=== PATIENT | female | born 1970 | race American Indian/Alaskan Native ===

== ENCOUNTER 2017-08-28 12:45 | Emergency (ER) | payer BC ==
[2017-08-28 14:44] LABS: BUN/Creatinine Ratio 8; Blood Urea Nitrogen 5 mg/dL (7-17); Calcium 9.2 mg/dL (8.4-10.2); Hemolysis Index 2
[2017-08-28 14:48] LABS: Basophils % (Auto) 0.4 % (0.0-1.8); Eosinophils # (Auto) 0.2 K/mm3 (0.0-0.4); Eosinophils % (Auto) 3.7 % (0.0-4.3); Hematocrit 38.2 % (30.3-42.9); Lymphocytes # (Auto) 1.7 K/mm3 (1.2-5.4); Lymphocytes % (Auto) 33.4 % (13.4-35.0); Mean Corpuscular HGB Conc 32 % (30-34); Mean Corpuscular Volume 75 fl (79-97); Monocytes # (Auto) 0.5 K/mm3 (0.0-0.8); Monocytes % (Auto) 9.1 % (0.0-7.3); Platelet Count 253 K/mm3 (140-440); Red Blood Count 5.11 M/mm3 (3.65-5.03); Red Cell Distribution Width 17.5 % (13.2-15.2)
[2017-08-28 14:51] LABS: Mean Corpuscular Hemoglobin 24 pg (28-32)
--- NOTE | 2017-08-28 15:39 | XRay Report ---
CHEST 2 VIEWS INDICATION: Chest pain, shortness of breath. COMPARISON: None similar at this institution. FINDINGS: Frontal and lateral chest radiographs suggest top normal heart size. Normal mediastinal and hilar contours. Clear lungs. Right hemidiaphragm approximately 1.5 cm higher than the left. Unremarkable bones. CONCLUSION: No acute disease. Thank you for the opportunity to participate in this patient's care.
--- NOTE | 2017-08-28 18:43 | Emergency Department Report ---
ED Chest Pain HPI - General Chief Complaint: Chest Pain Stated Complaint: CP Time Seen by Provider: 08/28/17 18:43 Source: patient Mode of arrival: Stretcher Limitations: No Limitations - History of Present Illness Initial Comments: Patient essentially ran out of high blood pressure medication for the past 1 week. Today she started having chest pain. MD Complaint: chest pain -: Sudden Onset: during rest Pain Location: substernal Pain Radiation: none Severity: moderate Severity scale (0 -10): 6 Quality: sharp Consistency: constant Improves With: nitroglycerin Worsens With: nothing re: denies: nausea, vomting Other Symptoms: cough Treatments Prior to Arrival: aspirin, nitroglycerin Aspirin use within the Past 7 Days: (1) Yes - Related Data On Oral Contraceptives: No Previous Rx's Medication Instructions Recorded Last Taken Type Amoxicillin/Potassium Clav 1 each PO BID #20 tablet 08/28/17 Unknown Rx [Augmentin 875-125 Tablet] Aspirin [Aspir-Low] 81 mg PO DAILY #30 tablet. 08/28/17 Unknown Rx Benzonatate [Tessalon Perles] 100 mg PO Q8HR PRN #20 capsule 08/28/17 Unknown Rx Nitroglycerin [Nitrostat] 0.4 mg SL Q5M PRN #30 tab 08/28/17 Unknown Rx Triamter/Hctz 37.5-25 mg 1 tab PO QDAY #60 tablet 08/28/17 Unknown Rx [Maxzide-25] Allergies Allergy/AdvReac Type Severity Reaction Status Date / Time vancomycin AdvReac Rash Verified 08/28/17 13:54 Heart Score - HEART Score History: Slightly suspicious EKG: Normal Age: 45-65 Risk factors: 1-2 risk factors Troponin: 1-3x normal limit HEART Score: 3 - Critical Actions Critical Actions: 0-3 pts:0.9-1.7%risk of adverse cardiac event.Candidate for discharge ED Review of Systems ROS: Stated complaint: CP Other details as noted in HPI Comment: All other systems reviewed and negative Constitutional: denies: chills, fever Eyes: denies: eye pain, vision change Respiratory: denies: cough, shortness of breath Cardiovascular: chest pain. denies: palpitations, dyspnea on exertion, edema, syncope Endocrine: no symptoms reported Gastrointestinal: denies: abdominal pain, nausea, vomiting, diarrhea Genitourinary: denies: urgency, dysuria, frequency Musculoskeletal: denies: back pain, joint swelling Skin: denies: rash, change in color Neurological: denies: headache, weakness, numbness Psychiatric: denies: anxiety, depression Hematological/Lymphatic: denies: easy bleeding, easy bruising ED Past Medical Hx - Past Medical History Previous Medical History?: Yes Hx Hypertension: Yes - Surgical History Past Surgical History?: Yes Additional Surgical History: uterine ablation - Social History Smoking Status: Never Smoker Substance Use Type: None - Medications Home Medications: Home Medications Medication Instructions Recorded Confirmed Last Taken Type Amoxicillin/Potassium Clav 1 each PO BID #20 tablet 08/28/17 Unknown Rx [Augmentin 875-125 Tablet] Aspirin [Aspir-Low] 81 mg PO DAILY #30 tablet.dr 08/28/17 Unknown Rx Benzonatate [Tessalon Perles] 100 mg PO Q8HR PRN #20 capsule 08/28/17 Unknown Rx Nitroglycerin [Nitrostat] 0.4 mg SL Q5M PRN #30 tab 08/28/17 Unknown Rx Triamter/Hctz 37.5-25 mg 1 tab PO QDAY #60 tablet 08/28/17 Unknown Rx [Maxzide-25] ED Physical Exam - General Limitations: No Limitations General appearance: alert, in no apparent distress, obese - Head Head exam: Present: atraumatic, normocephalic - Eye Eye exam: Present: normal appearance, PERRL, EOMI - ENT ENT exam: Present: normal exam, normal orophraynx, mucous membranes moist - Neck Neck exam: Present: normal inspection, full ROM. Absent: tenderness - Respiratory Respiratory exam: Present: normal lung sounds bilaterally. Absent: respiratory distress, wheezes, rales, rhonchi - Cardiovascular Cardiovascular Exam: Present: regular rate, normal rhythm, normal heart sounds - GI/Abdominal GI/Abdominal exam: Present: soft. Absent: distended, tenderness, guarding, rebound, normal bowel sounds - Extremities Exam Extremities exam: Present: normal inspection, full ROM, normal capillary refill. Absent: tenderness - Back Exam Back exam: Present: normal inspection, full ROM. Absent: tenderness, CVA tenderness (R), CVA tenderness (L) - Neurological Exam Neurological exam: Present: alert, oriented X3, CN II-XII intact - Psychiatric Psychiatric exam: Present: normal affect, normal mood - Skin Skin exam: Present: warm, dry, intact, normal color ED Course Vital Signs 08/28/17 08/28/17 08/28/17 13:48 19:28 19:30 Temperature 98 F 98.5 F Pulse Rate 80 73 73 Respiratory 18 13 Rate Blood Pressure 169/79 169/100 Blood Pressure 169/100 [Right] O2 Sat by Pulse 98 99 Oximetry 08/28/17 08/28/17 08/28/17 21:24 21:25 21:37 Temperature Pulse Rate 78 Respiratory 13 Rate Blood Pressure 167/97 156/85 Blood Pressure 153/87 [Right] O2 Sat by Pulse 96 Oximetry 08/28/17 08/28/17 22:25 22:46 Temperature Pulse Rate 76 Respiratory 13 Rate Blood Pressure Blood Pressure 151/90 154/73 [Right] O2 Sat by Pulse 97 Oximetry SUNITHA score - Sunitha Score Age > 65: (0) No Aspirin use within the Past 7 Days: (0) No 3 or more CAD Risk Factors: (0) No 2 or more Angina events in past 24 hrs: (0) No Known CAD with more than 50% Stenosis: (0) No Elevated Cardiac Markers: (0) No ST Deviation Greater than 0.5mm: (0) No SUNITHA Score: 0 ED Medical Decision Making - Lab Data Result diagrams: 08/28/17 14:03 08/28/17 14:03 - EKG Data -: EKG Interpreted by Me EKG shows normal: sinus rhythm Rate: normal (65) - EKG Data When compared to previous EKG there are: previous EKG unavailable Interpretation: normal EKG - Radiology Data Radiology results: report reviewed, image reviewed - Medical Decision Making Hypertension. Atypical Chest Pain. Critical care attestation.: If time is entered above; I have spent that time in minutes in the direct care of this critically ill patient, excluding procedure time. ED Disposition Clinical Impression: Bronchitis, Atypical chest pain Hypertension Qualifiers: Hypertension type: unspecified Qualified Code(s): I10 - Essential (primary) hypertension Disposition: - TO HOME OR SELFCARE Is pt being admited?: No Does the pt Need Aspirin: Yes Condition: Stable Instructions: Chest Pain (ED), Chronic Bronchitis (ED), Hypertension (ED) Additional Instructions: Please take your medication as prescribed. Follow-up with her primary doctor tomorrow morning. Return to the ED if your condition worsens. Prescriptions: Amoxicillin/Potassium Clav [Augmentin 875-125 Tablet] 1 each PO BID #20 tablet Aspirin [Aspir-Low] 81 mg PO DAILY #30 tablet. Benzonatate [Tessalon Perles] 100 mg PO Q8HR PRN #20 capsule PRN Reason: Cough Nitroglycerin [Nitrostat] 0.4 mg SL Q5M PRN #30 tab PRN Reason: Chest Pain Triamter/Hctz 37.5-25 mg [Maxzide-25] 1 tab PO QDAY #60 tablet Referrals: ANU HENRY JR, MD [Primary Care Provider] - 3-5 Days Time of Disposition: 23:00
[2017-08-28] MEDS ORDERED: NITROSTAT SL ONE (18:52)
[2017-08-28 19:48] LABS: Alanine Aminotransferase 18 units/L (7-56); Albumin 4.4 g/dL (3.9-5)
[2017-08-28 19:50] LABS: Bilirubin,Direct < 0.2 mg/dL (0-0.2)
[2017-08-28] MEDS ORDERED: NORMODYNE IV ONE (20:51)
[2017-08-28 22:46] VITALS: BP 154/73
[2017-08-28] MEDS ORDERED: TESSALON PERLES PO ONE (23:04)
[2017-08-28] MEDS ORDERED: AUGMENTIN 875 MG PO ONE (23:04)
[2017-08-29] MEDS ORDERED: MAXZIDE-25 PO ONE (19:30)
== END 2017-08-28 23:46 | disposition home or self-care (01) ==
LOC: ED 12:45
DX: J40 Bronchitis, not specified as acute or chronic (principal); I10 Essential (primary) hypertension; Z88.1 Allergy status to other antibiotic agents
CPT/HCPCS: 36415; 71046; 80048; 80074; 84484; 85025; 85379; 93005; 93010; 96374; 99284